=== PATIENT | male | born 1955 | race Caucasian/White ===

== ENCOUNTER 2017-12-06 13:24 | Emergency (ER) | payer SELFPAY ==
[2017-12-06 13:25] VITALS: BP 175/51; PULSE 70; RESP 16; TEMP 36.7; O2SAT 98; BMI 21.1
--- NOTE | 2017-12-06 13:45 | ED.VISSUMM ---
- ER Visit Summary Date of Service: 12/06/17 Chief Complaint: Left knee swelling History of Present Illness: The patient is a 62 M left knee swelling. This started gradually. He had this in the past that resolved spontaneously. 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 No fever or systemic symptoms. No other direct injuries. Physical Examination: Knee inspection is unremarkable except for some anterior swelling. His suprapatellar bursa is swollen and fluctuant. Overlying skin appears normal and intact. Good range of motion. No deformity. He is neurovascular intact distally. Vital signs unremarkable. Test Results: None indicated Emergency Department Course and Treatment: Patient has a traumatic left knee suprapatellar bursitis. I advised him to rest, ice, elevate, anti-inflammatories. He has chronic knee pain and was given a kenalog IM injection. Wily wrap applied. Reasons for return and reevaluation were discussed, and the patient will be discharged. Patient has a chronic right side inguinal hernia. It is not causing any symptoms. He was requesting follow-up with surgeon. I gave him the number to Dr. Marmolejo. He is getting insurance at the end of the month and will call. Treatment Plan: As above Disposition: Discharge Impression: 1. Left knee traumatic bursitis This note was generated with [employer] dictation software. It may contain incorrect words, spelling, and punctuation that were not noted in review of the chart prior to signing ED Disposition - Plan for ED Patient: Chief Complaint: Lower Extremity Injury Referrals: Care Physician,No Primary [Primary Care Provider] -
--- NOTE | 2017-12-06 13:49 | ED.DCSUM_ITS ---
- ER Visit Summary Date of Service: 12/06/17 Chief Complaint: Left knee swelling History of Present Illness: The patient is a 62 M left knee swelling. This started gradually. He had this in the past that resolved spontaneously. 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 No fever or systemic symptoms. No other direct injuries. Physical Examination: Knee inspection is unremarkable except for some anterior swelling. His suprapatellar bursa is swollen and fluctuant. Overlying skin appears normal and intact. Good range of motion. No deformity. He is neurovascular intact distally. Vital signs unremarkable. Test Results: None indicated Emergency Department Course and Treatment: Patient has a traumatic left knee suprapatellar bursitis. I advised him to rest, ice, elevate, anti- inflammatories. He has chronic knee pain and was given a kenalog IM injection. Wily wrap applied. Reasons for return and reevaluation were discussed, and the patient will be discharged. Patient has a chronic right side inguinal hernia. It is not causing any symptoms. He was requesting follow-up with surgeon. I gave him the number to Dr. Marmolejo. He is getting insurance at the end of the month and will call. Treatment Plan: As above Disposition: Discharge Impression: 1. Left knee traumatic bursitis This note was generated with [employer] dictation software. It may contain incorrect words, spelling, and punctuation that were not noted in review of the chart prior to signing ED Disposition - Plan for ED Patient: Chief Complaint: Lower Extremity Injury Referrals: Care Physician,No Primary [Primary Care Provider] -
--- NOTE | 2017-12-06 13:49 | ED.DEP ---
ED Disposition - Plan for ED Patient: Chief Complaint: Lower Extremity Injury Instructions: ED Bursitis Referrals: Sadie Marmolejo MD [STAFF PHYSICIAN] -
[2017-12-06] MEDS: Triamcinolone Acetonide 40 MG/ML Vial IM (14:18)
[2017-12-06 14:38] VITALS: BP 129/78; PULSE 94; RESP 22; O2SAT 98
--- NOTE | 2017-12-06 14:38 | ED.RN ---
THIS NURSE REVIEWED D/C INSTRUCTIONS WITH PT. PT VERBALIZED UNDERSTANDING OF INSTRUCTIONS. PT DENIES FURTHER NEEDS OR QUESTIONS AT THIS TIME. PT AMBULATES FROM ROOM ON OWN WITHOUT ASSISTANCE FROM STAFF
== END 2017-12-06 14:39 | disposition home or self-care (01) ==
LOC: ED 13:53
PROVIDERS: Emergency Provider Emergency Medicine
DX: M70.52 Other bursitis of knee, left knee (principal); Y93.89 Activity, other specified
CPT/HCPCS: 96372; 99282